=== PATIENT | male | born 1995 | race African-American/Black ===

== ENCOUNTER 2018-10-27 09:16 | Emergency (ER) | payer OTHER ==
[~2018-10-27] VITALS: Ht 177.8 cm; Wt 67.1 kg
[2018-10-27 09:21] VITALS: BP_SYST 139
[2018-10-27] MEDS ORDERED: BACITRACIN 1 GM OINT TP ONE (09:30)
[2018-10-27] MEDS ORDERED: DIPH-TET-PERTUS Vaccine 0.5 ML VIAL (ADACEL) IM ONE (09:30)
[2018-10-27 10:37] VITALS: BP_SYST 130
== END 2018-10-27 10:37 | disposition home or self-care (01) ==
LOC: SED 09:16
DX: S80.12XA Contusion of left lower leg, initial encounter (principal); S81.802A Unspecified open wound, left lower leg, initial encounter; R03.0 Elevated blood-pressure reading, without diagnosis of hypertension; V86.99XA Unspecified occupant of other special all-terrain or other off-road motor vehicle injured in nontraffic accident, initial encounter; Y93.89 Activity, other specified; Y92.410 Unspecified street and highway as the place of occurrence of the external cause; Y99.8 Other external cause status
CPT/HCPCS: 73590-TC; 90715; 99283